=== PATIENT | male | born 1990 | race Hispanic/Latino ===

== ENCOUNTER 2018-02-24 22:48 | Emergency (ER) | payer SELFPAY ==
[~2018-02-24] VITALS: Ht 182.9 cm; Wt 169.2 kg
[~2018-02-24 22:48] MED LIST: KEFLEX500 MG PO; NO MEDS
[2018-02-24 23:38] LABS: URINE BILIRUBIN - DIPSTICK NEGATIVE (NEGATIVE); URINE BLOOD DIPSTICK TRACE-INTACT (NEGATIVE); URINE CLARITY CLEAR; URINE COLOR YELLOW; URINE GLUCOSE - DIPSTICK NEGATIVE (NEGATIVE); URINE KETONE NEGATIVE (NEGATIVE); URINE LEUK ESTERASE NEGATIVE (NEGATIVE); URINE NITRITE - DIPSTICK NEGATIVE (Negative); URINE PROTEIN - DIPSTICK NEGATIVE (NEG-TRACE); URINE SPECIFIC GRAVITY >=1.030; URINE UROBILINOGEN - DIPSTICK 0.2 E.U./dL (0.2)
[2018-02-24 23:40] LABS: IMMATURE GRANULOCYTES 0.3 % (0.0-1.0); MEAN CORPUSCULAR HGB 29.1 pG CALC (26.0-32.0); MEAN CORPUSCULAR HGB CONC 34.1 g/L CALC (32.0-36.0); NEUT# 4.39 thou/uL (1.82-7.42); RED BLOOD COUNT 5.4 mill/uL (4.70-6.10); RED CELL DISTRI WIDTH 11.4 % (11.5-15.5)
[2018-02-24 23:41] LABS: HEMOGLOBIN 15.7 g/dl (14.0-18.0); MEAN CELL VOLUME 85.2 fL CALC (80.0-100.0)
[2018-02-24 23:48] LABS: ALBUMIN 4.3 g/dL (3.2-5.0); AMYLASE 64 u/l (30-110); ANION GAP 19 (6-22 (CALC)); BILIRUBIN, TOTAL 0.5 mg/dL (0.0-1.4); BUN 16 mg/dL (9-20); BUN/CREATININE RATIO 20 (12-20 (CALC)); CARBON DIOXIDE 25 mmol/l (22-30); CHLORIDE 101 mmol/l (95-108); CREATININE 0.8 mg/dL (0.7-1.3); GFR > 60 ML/MIN (>=60 (CALC)); GFR FOR AFR.AMER. > 60 ML/MIN (>=60 (CALC)); LIPASE 83 u/l (23-300); SGOT/AST 46 u/l (17-59); SGPT/ALT 71 u/l (21-72); SODIUM 141 mmol/l (137-146); TOTAL PROTEIN 8.1 g/dL (6.3-8.2)
[2018-02-24 23:52] LABS: ALKALINE PHOSPHATASE 65 u/l (38-126)
[2018-02-25] LABS: MYOGLOBIN 27 ng/mL (0 - 121)
[2018-02-25] MEDS ORDERED: AMPICILLIN500 MG PO (01:18)
[2018-02-25] MEDS ORDERED: OMEPRAZOLE20 M2 PO (01:18)
[2018-02-25] MEDS ORDERED: CLARITHROMYC500 M2 PO (01:18)
[2018-02-25 01:27] VITALS: BP 146/92
== END 2018-02-25 01:27 | disposition home or self-care (01) | DRG 384 ==
LOC: ED 22:48
PROVIDERS: Emergency Medicine
DX: K27.9 Peptic ulcer, site unspecified, unspecified as acute or chronic, without hemorrhage or perforation (principal); B96.81 Helicobacter pylori [H. pylori] as the cause of diseases classified elsewhere
CPT/HCPCS: S0164

== ENCOUNTER 2021-01-30 12:30 | Emergency (ER) | payer OTHER ==
[~2021-01-30] VITALS: Ht 182.9 cm; Wt 188.6 kg
[~2021-01-30 12:30] MED LIST changes: +AMPICILLIN500 MG PO; +CLARITHROMYC500 M2 PO; +OMEPRAZOLE20 M2 PO
[2021-01-30 13:21] LABS: HEMOGLOBIN 15.9 g/dl (14.0-18.0); IMMATURE GRANULOCYTES 0.4 % (0.0-5.0); MEAN CORPUSCULAR HGB 28.5 pG CALC (26.0-32.0); MEAN CORPUSCULAR HGB CONC 33.1 g/dL CAL (32.0-36.0); NEUT# 18.22 thou/uL (1.82-7.42); RED BLOOD COUNT 5.58 mill/uL (4.70-6.10)
[2021-01-30 13:38] LABS: ALBUMIN 4.9 g/dL (3.2-5.0); ALKALINE PHOSPHATASE 75 u/l (38-126); AMYLASE 45 u/l (30-110); ANION GAP 17 (6-22 (CALC)); BILIRUBIN, TOTAL 1.1 mg/dL (0.0-1.4); BUN 12 mg/dL (9-20); BUN/CREATININE RATIO 22 (12-20 (CALC)); CARBON DIOXIDE 25 mmol/l (22-30); CHLORIDE 99 mmol/l (95-108); CREATININE 0.5 mg/dL (0.7-1.3); GFR > 60 ML/MIN (>=60 (CALC)); GFR FOR AFR.AMER. > 60 ML/MIN (>=60 (CALC)); LIPASE 83 u/l (23-300); POTASSIUM 4.3 mmol/l (3.5-5.1); SGOT/AST 31 u/l (17-59); SODIUM 137 mmol/l (137-146); TOTAL PROTEIN 8.7 g/dL (6.3-8.2)
[2021-01-30 13:57] VITALS: BP 142/82
== END 2021-01-30 13:58 | disposition short-term general hospital (02) | DRG 446 ==
LOC: ED 12:30
DX: K80.00 Calculus of gallbladder with acute cholecystitis without obstruction (principal); Z87.11 Personal history of peptic ulcer disease; Z20.822 Contact with and (suspected) exposure to COVID-19

== ENCOUNTER → 2021-07-12 | Outpatient (REF) | payer OTHER | END | disposition home or self-care (01) | DRG 951 | LOC: LAB 07:40 | PROVIDERS: ATTEND Nurse Practitioner | DX: Z20.822 Contact with and (suspected) exposure to COVID-19 (principal) ==